=== PATIENT | female | born 1965 | race Caucasian/White ===

== ENCOUNTER 2022-04-28 15:19 | Outpatient (REF) | payer BC, SELFPAY ==
--- NOTE | 2022-04-28 15:10 | ENDOMET_PTH ---
PATIENT: Jana Bullock LOC: [facility] U#:[id number] AGE/SX: 57/F ROOM: RE04/28/[address]: Lillian Baird : 1965 BED: DIS: 04/28/2022 SPEC #: [id number] RECD: 04/28/22 17:35 STATUS: BK REQ #: [id number] OSMAR: 04/28/22 15:[address]: Lillian Baird DEPT: Surgical Specimen RECD BY: Keyla Granado ENTERED: 04/28/22 17:36 SP TYPE: Endomet OTHR DR: Gia Sosa Tissues: 1 - ENDOMETRIUM BX/ZEESHAN Procedures: GROSS AND MICRO LEVEL 4 Comments: [id number]
== END 2022-04-28 15:20 | disposition home or self-care (01) ==
LOC: LBN 15:19
PROVIDERS: PCP Nurse Practitioner; Visit Provider Obstetrics & Gynecology Gynecology
DX: N84.0 Polyp of corpus uteri (principal)
CPT/HCPCS: 88305